=== PATIENT | male | born 1980 | race Caucasian/White ===

== ENCOUNTER 2022-06-19 22:02 | Emergency (ER) | payer BC, SELFPAY ==
[2022-06-19 22:04] VITALS: BP 190/120; PULSE 105; RESP 20; TEMP 37.1; O2SAT 100
[2022-06-19 22:58] LABS: Basophils Percent Auto 0.3 % (0.2-1.2); Eosinophils Absolute Auto 0.1 K/mm3 (0-0.3); Eosinophils Percent Auto 1.5 % (0-4.4); Hematocrit 43.6 % (42.0-52.0); Hemoglobin 14.4 g/dL (14.0-18.0); Immature Granulocyte Absolute 0.03 K/mm3 (0.00-0.031); Immature Granulocyte Percent A 0.3 % (0-0.5); Lymphocytes Absolute Auto 1.67 K/mm3 (0.9-3.2); Mean Corpuscular Hemoglobin 28.3 pg (26-34); Mean Corpuscular Volume 85.7 fl (80-100); Mean Platelet Volume 10.6 fl (7.4-10.4); Monocytes Absolute Auto 1.1 K/mm3 (0.1-0.6); Neutrophils Absolute Auto 5.9 K/mm3 (1.3-6.7); Neutrophils Percent Auto 66.9 % (45.5-73.1); Platelet Count Result 306 k/mm3 (150-375); Red Blood Count 5.09 M/mm3 (4.6-6.20); Red Cell Distribution Width 13.6 % (11.5-14.5); White Blood Count 8.8 K/mm3 (4.5-10.0)
[2022-06-19 23:12] LABS: Prothrombin Time 12.7 Seconds (11.1-14.7)
[2022-06-19 23:13] LABS: Partial Thromboplastin Time 32.1 SECONDS (22.3-36.8)
[2022-06-19 23:16] LABS: Alanine Aminotransferase 36 U/L (6-50); Albumin Level 4.3 g/dL (3.5-5.1); Alkaline Phosphatase 106 U/L (38-126); Anion Gap 8 mmol/L (8-16); Aspartate Amino Transferase 22 U/L (17-59); Bilirubin,Total 0.6 mg/dL (0.2-1.3); Blood Urea Nitrogen 12 mg/dL (9-20); Calcium 8.8 mg/dL (8.4-10.2); Carbon Dioxide 25 mmol/L (22-30); Chloride 105 mmol/L (98-107); Estimated CRCL calculation 152 ml/min; Estimated Glomerular Filt Rate > 60; Glucose 119 mg/dL (65-110); Potassium 3.3 mmol/L (3.4-5.0); Sodium 138 mmol/L (137-145)
--- NOTE | 2022-06-19 23:33 | ED.GIBLEED ---
HPI - GI Bleed General Chief complaint: GI Bleed Stated complaint: blood in stool Time Seen by Provider: 06/19/22 23:18 Source: patient Mode of arrival: ambulatory Limitations: no limitations History of Present Illness HPI Narrative: This is a 42 year old male that presents to the ER for blood present when wiping. Reports he had a bowel movement and noted blood on the tissue when he wiped. Reports he was having some trouble with constipation the last couple of days. Reports no history of hemorrhoids or fissures. He is not on any anticoagulation. He denies any abdominal pain, diarrhea, or blood in the stool. Related Data Allergies Allergy/AdvReac Type Severity Reaction Status Date / Time No Known Allergies Allergy Verified 06/19/22 23:54 Review of Systems Review of Systems: CONSTITUTIONAL: Denies fever GASTROINTESTINAL: Denies abdominal pain, nausea, vomiting, or diarrhea. All systems reviewed & are unremarkable except as noted in HPI and below PMFSH Past Medical History Medical History (Updated 06/19/22 @ 23:49 by Jennifer Galvez PA-C) No active medical problems Social History Social History (Updated 06/19/22 @ 23:41 by Jennifer Galvez PA-C) Smoking status: Never smoker Exam Narrative: GENERAL: Well-appearing, well-nourished, and in no acute distress. HEAD: Normocephalic, atraumatic. EYES: EOMI. CHEST: Clear to auscultation. No respiratory distress. No wheezes rales or rhonchi HEART: Regular rate and rhythm. No murmur heard. Normal peripheral pulses. ABDOMEN: Soft, nontender, nondistended, normal active bowel sounds. EXTREMITIES: Normal range of motion. No edema. SKIN: Warm, dry, no rash. NEURO: No focal deficits. Alert and oriented x3. PSYCH: Normal mood and affect RECTAL: External hemorrhoid present, no active bleeding Course Vital Signs Vital signs: Vital Signs Temperature 98.7 F 06/19/22 22:04 Pulse Rate 105 H 06/19/22 22:04 Respiratory Rate 20 06/19/22 22:04 Blood Pressure 190/120 H 06/19/22 22:04 Pulse Oximetry 100 06/19/22 22:04 Oxygen Delivery Room Air 06/19/22 22:04 Temperature 98.7 F 01/10/23 22:04 Pulse Rate 105 H 06/19/22 22:04 Respiratory Rate 20 06/19/22 22:04 Blood Pressure 190/120 H 06/19/22 22:04 Pulse Oximetry 100 06/19/22 22:04 Oxygen Delivery Room Air 06/19/22 22:04 MDM - GI Bleed MDM Narrative Medical decision making narrative: Patient presents emergency department after seeing blood on the tissue when he wiped after a bowel movement today. He has an external hemorrhoid that is not actively bleeding. He is not on any anticoagulation. His hemoglobin is normal. Noted to be mildly hypokalemic. Patient given a dose of potassium in the ER. Instructed on conservative management. He is to follow-up with his primary care provider. Also be given follow-up with GI. He was given warnings to return to the ER Patient hypertensive upon arrival, his blood pressure down trended without intervention Differential Diagnosis Differential diagnosis: Likely hemorrhoids, Lower gastrointestinal hemorrhage and anal fissure Lab Data 06/19/22 22:45 06/19/22 22:45 Labs: Lab Results 06/19/22 06/19/22 06/19/22 Range/Units 22:45 22:45 22:45 WBC 8.8 (4.5-10.0) K/mm3 RBC 5.09 (4.6-6.20) M/mm3 Hgb 14.4 (14.0-18.0) g/dL Hct 43.6 (42.0-52.0) % MCV 85.7 (80-100) fl MCH 28.3 (26-34) pg MCHC 33.0 (32-36) g/dl RDW 13.6 (11.5-14.5) % Plt Count 306 (150-375) k/mm3 MPV 10.6 H (7.4-10.4) fl Immature Gran % (Auto) 0.3 (0-0.5) % Neut % (Auto) 66.9 (45.5-73.1) % Lymph % (Auto) 19.0 (18.3-44.2) % [place] % (Auto) 12.0 H (2.6-8.5) % Eos % (Auto) 1.5 (0-4.4) % Baso % (Auto) 0.3 (0.2-1.2) % Lymph # (Auto) 1.67 (0.9-3.2) K/mm3 [place] # (Auto) 1.1 H (0.1-0.6) K/mm3 Eos # (Auto) 0.1 (0-0.3) K/mm3 Baso # (Auto) 0.0 (0.0-0.1) K/mm3 Abs Immat
[2022-06-20 00:05] VITALS: BP 137/93; PULSE 75; RESP 16; O2SAT 98
[2022-06-20] MEDS: POTASSIUM CHLORIDE 20 MEQ TABLET 40 MEQ PO (00:08)
== END 2022-06-20 00:22 | disposition home or self-care (01) ==
LOC: ANHED 23:43
PROVIDERS: Family Medicine; Emergency Provider Physician Assistant
DX: K64.9 Unspecified hemorrhoids (principal); E87.6 Hypokalemia
CPT/HCPCS: 36415; 80053; 85025; 85610; 85730; 86850; 86900; 86901; 99283; A9270